=== PATIENT | male | born 1995 | race Caucasian/White ===

== ENCOUNTER → 2019-08-05 | Outpatient (REF) | payer BC ==
[2019-08-06 07:58] LABS: CHLAMYDIA DNA AMPLIFICATION NEGATIVE (NEGATIVE); GC DNA AMPLIFICATION NEGATIVE (NEGATIVE)
== END ==
LOC: M LABWUC 17:33
PROVIDERS: ATTEND Physician Assistant
DX: N52.9 Male erectile dysfunction, unspecified (principal); R31.9 Hematuria, unspecified

== ENCOUNTER → 2019-10-14 | Outpatient (CLI) | payer BC ==
--- NOTE | 2019-11-07 09:27 | REP ---
HIP SERIES: CLINICAL: Pain. TECHNIQUE: Neutral and frog lateral views of the right hip. FINDINGS: Osseous structures, joint spaces and surrounding soft tissues are normal. No acute fracture or dislocation. No abnormal findings appreciated. IMPRESSION: Normal right hip radiographs. MTDD
--- NOTE | 2019-11-07 09:28 | REP ---
LUMBOSACRAL SPINE SERIES CLINICAL: Back pain. TECHNIQUE: AP, lateral, bilateral oblique, and coned down views of the lumbosacral spine. FINDINGS: Alignment and lordosis maintained. Vertebral bodies intact. No acute fracture/compression injury or subluxation. No spondylolysis or spondylolisthesis. IMPRESSION: Normal lumbosacral spine radiograph series. [facility]
== END ==
LOC: M WUC 11:04
PROVIDERS: ATTEND Nurse Practitioner Family
DX: M54.5 Low back pain (principal); M25.551 Pain in right hip

== ENCOUNTER 2021-05-29 15:05 | Emergency (ER) | payer BC ==
[~2021-05-29] VITALS: Ht 177.8 cm; Wt 102.3 kg
[2021-05-29] MEDS ORDERED: NAPR-837 PO (16:47)
[2021-05-29] MEDS ORDERED: NAPROXEN 250 MG TAB PO ONE (16:50)
[2021-05-29 17:00] VITALS: BP 164/80
== END 2021-05-29 17:02 | disposition home or self-care (01) ==
LOC: M ED 15:05
DX: S59.912A Unspecified injury of left forearm, initial encounter (principal); X58.XXXA Exposure to other specified factors, initial encounter; Y92.099 Unspecified place in other non-institutional residence as the place of occurrence of the external cause; Y93.89 Activity, other specified; Y99.9 Unspecified external cause status

== ENCOUNTER → 2022-01-13 | Outpatient (REF) ==
[~2022-01-13] MED LIST: NAPR-837 PO
== END ==
LOC: M EMP 10:15
PROVIDERS: ATTEND Family Medicine
DX: Z20.822 Contact with and (suspected) exposure to COVID-19 (principal)

== ENCOUNTER → 2023-12-29 | Outpatient (REF) ==
[~2023-12-29] MED LIST changes: +PSEU-52 PO
== END ==
LOC: M EMP 11:29
PROVIDERS: ATTEND Family Medicine
DX: Z11.52 Encounter for screening for COVID-19 (principal)

== ENCOUNTER → 2023-12-29 | Outpatient (REF) | LOC: M EMP 11:28 | PROVIDERS: ATTEND Family Medicine | DX: Z11.52 Encounter for screening for COVID-19 (principal) ==

== ENCOUNTER 2024-09-25 01:40 | Observation (INO) | payer SELFPAY ==
[~2024-09-25] VITALS: Ht 177.8 cm; Wt 105.8 kg
[2024-09-25] MEDS: MORPHINE 4 MG/ML 1 ML VIAL IV PRN (04:48)
[2024-09-25] MEDS: ONDANSETRON 4MG 2ML VIAL IV ONE (04:48)
[2024-09-25] MEDS ORDERED: MORPHINE 4 MG/ML 1 ML VIAL IV PRN (05:50)
[2024-09-25] MEDS ORDERED: MORPHINE 2 MG/ML 1 ML VIAL IV PRN (05:50)
[2024-09-25 05:59] LABS: BASO # 0.0 10^3/uL (0.0-0.2); BASO % 0.3 % (0.0-1.0); EOS # 0.0 10^3/uL (0.0-0.5); EOS % 0.3 % (0.0-3.0); LYMPH # 2.0 10^3/uL (1.5-5.0); LYMPH % 16.7 % (24.0-44.0); MONO # 1.0 10^3/uL (0.0-0.8); MONO % 7.9 % (2.0-8.0); NEUTROPHILS # 9.1 10^3/uL (1.5-8.5); NEUTROPHILS % 74.6 % (36.0-66.0); PLATELET COUNT, AUTOMATED 373 10^3/uL (150-450)
[2024-09-25 06:13] LABS: INR 1.1
[2024-09-25 06:20] LABS: CALCIUM LEVEL 8.8 MG/DL (8.5-10.1); CARBON DIOXIDE LEVEL 26 MMOL/L (20-31); CHLORIDE LEVEL 104 MMOL/L (98-107); CREATININE FOR GFR 1.09 MG/DL (0.70-1.30); GLOMERULAR FILTRATION RATE > 90.0 (>60); POTASSIUM SERUM 3.9 MMOL/L (3.5-5.1); SODIUM LEVEL 141 MMOL/L (136-145)
[2024-09-25] MEDS: METHOCARBAMOL 1,000 MG/10 ML VIAL IV ONE (06:22)
[2024-09-25] MEDS: ACETAMINOPHEN *IV* 1,000 MG in IV 1 EA IV ONE (06:23)
[2024-09-25] MEDS: LR 1,000 ML IV SCH ×2 (06:24→13:40)
[2024-09-25] MEDS ORDERED: HOME MED LIST COMPLETE! XX SCH (06:50)
[2024-09-25] MEDS ORDERED: ROCURONIUM BROMIDE 50MG/5ML VIAL As Ordered ONE (07:40)
[2024-09-25] MEDS ORDERED: LIDOCAINE 2% 100 MG/5 ML SDV (FOR ANES.) As Ordered ONE (07:40)
[2024-09-25] MEDS ORDERED: MIDAZOLAM INJ 2 MG/2 ML VIAL As Ordered ONE (07:40)
[2024-09-25] MEDS ORDERED: ONDANSETRON 4MG 2ML VIAL As Ordered ONE (07:41)
[2024-09-25] MEDS ORDERED: KETOROLAC 30 MG/ML 1 ML VIAL As Ordered ONE (07:41)
[2024-09-25] MEDS ORDERED: SUGAMMADEX SODIUM 500 MG/5 ML VIAL As Ordered ONE (07:41)
[2024-09-25] MEDS ORDERED: dexAMETHasone 4 MG/ML 1 ML VIAL As Ordered ONE (07:41)
[2024-09-25] MEDS ORDERED: ACETAMINOPHEN 1000MG/100ML IV BAG As Ordered ONE (07:41)
[2024-09-25 09:55] VITALS: BP 136/82; TEMP 98.7; O2SAT 96
[2024-09-25 12:00] VITALS: BP 143/93; TEMP 99.1; O2SAT 99
[2024-09-25] MEDS: ACETAMINOPHEN *IV* 1,000 MG in IV 1 EA IV SCH (12:00)
[2024-09-25] MEDS ORDERED: CELE1CAP4 PO (13:24)
[2024-09-25] MEDS ORDERED: ACET-907 PO (13:24)
[2024-09-25] MEDS ORDERED: OXYC-517 PO (13:24)
[2024-09-25] MEDS ORDERED: ONDA-282 PO (13:24)
[2024-09-25] MEDS ORDERED: COLA100C5 PO (13:24)
[2024-09-25] MEDS ORDERED: MEPERIDINE 25 MG/ML 1 ML VIAL IV PRN (13:40)
[2024-09-25] MEDS ORDERED: HYDROMORPHONE HCL 0.5 MG/0.5 ML SYRINGE IV PRN (13:40)
[2024-09-25] MEDS ORDERED: ONDANSETRON 4MG 2ML VIAL IV PRN (13:40)
[2024-09-25] MEDS ORDERED: diphenhydrAMINE 50 MG/ML VIAL IV PRN (13:40)
[2024-09-25] MEDS: TRANEXAMIC ACID 100 MG/ML 10ML VIAL As Ordered ONE (14:12)
[2024-09-25] MEDS ORDERED: HYDROmorphone HCL 2 MG/ML 1 ML VIAL As Ordered ONE (14:40)
[2024-09-25] MEDS: ALBUTEROL SULFATE 2.5 MG/0.5 ML INH CONCENTRATE NEB SOLN INH ONE (14:50)
[2024-09-25] MEDS: ROPIvacaine 0.5% 30ML VIAL PN ONE (15:55)
[2024-09-25] MEDS: LIDOCAINE 1% SDV 5 ML VIAL PN ONE (15:55)
[2024-09-25 17:41] VITALS: BP 148/76; TEMP 96.3; O2SAT 99
== END 2024-09-25 19:30 | disposition home or self-care (01) ==
LOC: M ED 01:40 → M ED INP 01:41 → M MS4PR 09:54
PROVIDERS: ADMIT Student in an Organized Health Care Education/Training Program; ATTEND Student in an Organized Health Care Education/Training Program
DX: S52.242A Displaced spiral fracture of shaft of ulna, left arm, initial encounter for closed fracture (principal); Y93.75 Activity, martial arts; Y92.328 Other athletic field as the place of occurrence of the external cause; W50.1XXA Accidental kick by another person, initial encounter; Y99.9 Unspecified external cause status
CPT/HCPCS: 25545; 73090; 76000; 80048; 85025; 85610; 85730; 86850; 86900; 86901; 96361; 96374; 96375; 99285; C1713; J0131; J0665; J0690; J1100; J1171; J1885; J2175; J2250; J2405; J2800; J3010

== ENCOUNTER → 2024-10-05 | Outpatient (CLI) | payer SELFPAY ==
[~2024-10-05] MED LIST changes: +ACET-907 PO; +CELE1CAP4 PO; +COLA100C5 PO; +ONDA-282 PO; +OXYC-517 PO
== END ==
LOC: M SOG 06:57
PROVIDERS: ATTEND Physician Assistant
DX: S52.202D Unspecified fracture of shaft of left ulna, subsequent encounter for closed fracture with routine healing (principal)

== ENCOUNTER → 2024-11-16 | Outpatient (CLI) | payer SELFPAY | LOC: M SOG 07:19 | PROVIDERS: ATTEND Physician Assistant | DX: S52.202D Unspecified fracture of shaft of left ulna, subsequent encounter for closed fracture with routine healing (principal) ==